=== PATIENT | female | born 1940 | race Caucasian/White ===

== ENCOUNTER 2017-02-15 10:56 | Observation (INO) | payer OTHER ==
[~2017-02-15] VITALS: Ht 154.9 cm; Wt 52.8 kg
[2017-02-15 11:27] LABS: EOSINOPHIL (%) 0.4 % (0-5); HEMATOCRIT 40.3 % (36.0-46.0); IMMATURE GRANULOCYTE (%) 4.4 % (0.0-0.7); IMMATURE GRANULOCYTE COUNT 0.2 K/uL; INSTRUMENT ABS NEUTROPHIL CT 1.6 K/uL; MCH 26.3 PG (29.0-34.0); MCHC 32.5 G/DL (30.0-36.0); MCV 80.9 FL (83-99); MEAN PLAT.VOLUME 9.6 uM^3 (9.5-12.4); MONOCYTE (%) 15.4 % (3-12); MONOCYTE COUNT 0.7 K/uL (0-0.8); NEUTROPHIL (%) 35.4 % (45-76); NEUTROPHIL COUNT 1.6 K/uL (1.8-6.4); PLATELET COUNT 140 K/uL (156-360); RBC DIS.WIDTH-CV 15.3 % (11.8-14.6); RBC DIS.WIDTH-SD 45.2 % (39-53); RED BLOOD COUNT 4.98 M/uL (3.80-5.20); WHITE BLOOD COUNT 4.6 K/uL (4.1-10.2)
[2017-02-15 11:32] LABS: PROTHROMBIN TIME 10.9 SEC (10.2-12.9)
[2017-02-15 11:35] LABS: PTT 36.7 SEC (25-37)
[2017-02-15 11:44] LABS: CHLORIDE 108 mEq/L (99-109); POTASSIUM 4.1 mEq/L (3.7-5.4); SODIUM 140 mEq/L (136-147)
[2017-02-15 11:46] LABS: GLUCOSE 99 mg/dL (70-99)
[2017-02-15 11:47] LABS: TROP-I INTERPRETATION NEGATIVE; TROPONIN-I < 0.01 ng/mL (0.0-0.30)
[2017-02-15 11:48] LABS: ANION GAP 11 MEQ/L (2-14)
[2017-02-15 11:50] LABS: GFR ESTIMATE (CALCULATED) > 59 mL/min/
[2017-02-15 11:51] LABS: UREA NITROGEN (BUN) 16 mg/dL (9-23)
[2017-02-15] MEDS ORDERED: NEXIUM40 MG PO (14:24)
[2017-02-15] MEDS ORDERED: CRESTOR40 MG PO (14:25)
[2017-02-15] MEDS ORDERED: DILTIAZEM 24HR300 MG PO (14:26)
[2017-02-15] MEDS ORDERED: CLOPIDOGREL75 MG PO (14:26)
[2017-02-15] MEDS ORDERED: AMITRIPTYLINE H10 MG PO (14:27)
[2017-02-15] MEDS ORDERED: REMERON15 M2 PO (14:27)
[2017-02-15] MEDS ORDERED: MYRBETRIQ50 MG PO (14:28)
[2017-02-15] MEDS ORDERED: PROBIOTIC1 EAC1 PO (14:30)
[2017-02-15] MEDS ORDERED: CONSTULOSE10 GM/15 M PO (14:32)
[2017-02-15] MEDS ORDERED: MIRALAX17 GM PO (14:33)
[2017-02-15] MEDS ORDERED: ALENDRONATE SOD70 MG PO (14:34)
[2017-02-15] MEDS ORDERED: ZOPICLONE PO (14:36)
[2017-02-15] MEDS ORDERED: ATROVENT H200 INHALA IH (14:36)
[2017-02-15] MEDS ORDERED: DULCOLAX5 MG PO (14:38)
[2017-02-15] MEDS ORDERED: COLACE100 MG PO (14:38)
[2017-02-15 15:15] LABS: POINT-OF-CARE METER ID UU13113747
[2017-02-15 18:05] LABS: TROP-I INTERPRETATION NEGATIVE; TROPONIN-I < 0.01 ng/mL (0.0-0.30)
[2017-02-15 21:08] VITALS: BP 154/67
[2017-02-16] VITALS (7 sets, daily range): BP systolic 104–152; BP diastolic 56–78
[2017-02-16 02:45] LABS: TROP-I INTERPRETATION NEGATIVE; TROPONIN-I < 0.01 ng/mL (0.0-0.30)
[2017-02-16 06:44] LABS: ADD MIUA? NO; BILIRUBIN NEGATIVE; BLOOD NEGATIVE; COLOR YELLOW ((YELLOW)); GLUCOSE (STRIP) NEGATIVE; KETONES 5; LEUKOCYTES NEGATIVE; NITRITE NEGATIVE; PROTEIN (STRIP) NEGATIVE; SPECIFIC GRAVITY 1.017 (1.000-1.030); UCUL ADDED? NO; UROBILINOGEN 0.2 MG/DL (0.2-1.0)
[2017-02-16] MEDS ORDERED: CRESTOR40 MG PO (17:00)
[2017-02-16] MEDS ORDERED: NEXIUM40 MG PO (17:00)
[2017-02-16] MEDS ORDERED: AMITRIPTYLINE H10 MG PO (17:00)
[2017-02-16] MEDS ORDERED: MYRBETRIQ50 MG PO (17:00)
[2017-02-16] MEDS ORDERED: REMERON15 M2 PO (17:00)
[2017-02-16] MEDS ORDERED: CLOPIDOGREL75 MG PO (17:00)
[2017-02-16] MEDS ORDERED: DILTIAZEM 24HR300 MG PO (17:00)
== END 2017-02-16 18:49 | disposition home or self-care (01) ==
LOC: EME 10:56 → 5WEST 13:21 → EDOF 13:21 → ENRESERV 13:38 → 5WEST 20:45
PROVIDERS: Emergency Medicine; Hospitalist; Nurse Practitioner Adult Health
DX: R07.89 Other chest pain (principal); I16.0 Hypertensive urgency; I10 Essential (primary) hypertension; T46.5X6A Underdosing of other antihypertensive drugs, initial encounter; Z91.128 Patient's intentional underdosing of medication regimen for other reason; E78.5 Hyperlipidemia, unspecified; I35.0 Nonrheumatic aortic (valve) stenosis; J45.909 Unspecified asthma, uncomplicated; Z87.442 Personal history of urinary calculi; Z82.49 Family history of ischemic heart disease and other diseases of the circulatory system; Z87.891 Personal history of nicotine dependence; Z91.041 Radiographic dye allergy status; Z88.7 Allergy status to serum and vaccine; Z91.040 Latex allergy status
CPT/HCPCS: 71010; 78582; 80048; 81003; 82948; 84484; 85025; 85379; 85610; 85730; 93005; 94640; 94640 76; 99202; A9540; A9567; C9113; G0378; J0360; J1200; J1650; J2270; J2405; J7040